=== PATIENT | male | born 1955 | race African-American/Black ===

== ENCOUNTER 2020-04-04 10:38 | Outpatient (CLI) | payer MEDICARE ==
--- NOTE | 2020-04-04 10:50 | RAD ---
XR Chest Pa Lat STANDARD HISTORY: Hemoptysis COMPARISON: None FINDINGS: The heart size is normal. The lungs are well expanded with patchy consolidation in the righ t upper lobe. No pneumothoraces or pleural effusions are seen. IMPRESSION: Findings suspicious for right sided pneumonia. A follow-up exam should be obtained after treatment to exclude underlying mass.
== END 2020-04-04 10:39 | disposition home or self-care (01) ==
LOC: RAD-FRANK 10:38
PROVIDERS: ATTEND Nurse Practitioner Family
DX: R04.2 Hemoptysis (principal)
CPT/HCPCS: 71046

== ENCOUNTER 2020-04-06 16:55 | Inpatient (IN) | payer MEDICARE, MEDICAID, OTHER ==
[~2020-04-06 16:55] MED LIST: Iopamidol-370 76% 500 ML 1 ML ONE
[2020-04-06 17:55] LABS: Hemoglobin 9.3 g/dL (14.0-18.0); Mean Corpuscular HGB CONC 33.1 g/dL (32.0-36.0); Mean Corpuscular Hemoglobin 27.6 pg (27.0-31.0); Mean Corpuscular Volume 83.5 fL (78.0-98.0); Mean Platelet Volume 6.4 fL (7.4-10.4); Platelet Count 655 thou/uL (130-400); RBC Distribution Width 14.1 % (11.5-14.5); Red Blood Cell (RBC) Count 3.36 mill/uL (4.70-6.10); White Blood Cell (WBC) Count 22.5 thou/uL (4.8-10.8)
[2020-04-06 18:15] LABS: ALT (SGPT) 55 U/L (8-55); AST (SGOT) 34 U/L (5-34); Albumin 3.2 g/dL (3.4-4.8); Alkaline Phosphatase 100 U/L (40-110); Anion Gap 15 mmol/L (10-20); BUN (Urea Nitrogen) 12 mg/dL (8.4-25.7); Bilirubin, Total 0.2 mg/dL (0.2-1.2); Calc. Creatinine Clearance 0 mL/min (70-130); Carbon Dioxide 23 mmol/L (23-31); Chloride 99 mmol/L (98-107); Estimated GFR-MDRD Greater than 90; Globulin 4.2 g/dL (2.4-3.5); Glucose 86 mg/dL (80-115); Potassium 3.7 mmol/L (3.5-5.1); Protein, Total 7.4 g/dL (5.8-8.1); Sodium 133 mmol/L (136-145)
--- NOTE | 2020-04-06 18:15 | RAD ---
Chest AP view INDICATION: 64-year-old male with high white count COMPARISON: April 04, 2020 FINDINGS: Lungs: Right suprahilar airspace consolidation persists suspicious for either a lung mass or right u pper lobe pneumonia. There is new patchy interstitial and groundglass opacity within the left lung base suspicious for new focus of pneumonia. Cardiac silhouette: The cardiomediastinal silhouette appears within normal limits. Pulmonary vasculature: Normal Pleural spaces: No pleural effusion or pneumothorax is demonstrated. Upper abdomen: No abnormality seen. Osseous structures: No acute osseous abnormality. Additional findings: None. IMPRESSION: Findings suspicious for bilateral pneumonia. A right upper lobe mass is not entirely excluded. Recomm end appropriate therapy and follow-up imaging.
[2020-04-06 18:20] LABS: Band 5 % (5-11); Lymphocytes 12 % (21-51); MDiff Complete? YES; Monocytes 5 % (0-10); Neutrophil 77 % (42-75); Platelet Morphology Comment Appears Increased; Polychromasia SLIGHT = 2-3 cells (100X) (0-2/hpf)
[2020-04-06] MEDS ORDERED: Acetaminophen 500 MG TAB ONE (18:42)
[2020-04-06] MEDS ORDERED: cefTRIAXone\\ROCEPHIN 2 GM VIAL ONE (18:42)
[2020-04-06] MEDS ORDERED: Azithromycin 500 MG VIAL ONE (19:21)
--- NOTE | 2020-04-06 20:08 | CT ---
CT OF THE CHEST WITH IV CONTRAST INDICATION: Pneumonia concern for lung mass COMPARISON: Radiographs dated April 04, 2020 and April 06, 2020 FINDINGS: CHEST: Lungs: There is dense airspace consolidation within the anterior segment of the right upper lobe with areas of intraparenchymal abscess formation. Small amount of adjacent fluid is seen within the anterior right pleural space. No definite right hilar mass is identified. There are patchy areas of s ubsegmental volume loss involving both lower lobes as well as the lingula. Pleural space: Small amount of fluid is seen within the pleural space adjacent to the right upper lo be consolidation consistent with a small loculated pleural effusion. Mediastinum: There are mildly prominent right paratracheal. The largest measures 1 cm. There is a pro minent right hilum measuring 2.2 cm. Upper abdomen:No acute abnormality. Osseous structures: No acute osseous abnormality. No destructive osteolytic or osteoblastic lesion i s identified. There is scattered degenerative and osteoarthritic changes. Soft tissues:Normal. IMPRESSION: 1. Severe right upper lobe pneumonia with a small adjacent loculated parapneumonic effusion. There ar e areas of cystic and gaseous changes within the right upper lobe parenchyma suspicious for areas of pulmonary abscess formation. Majority of these are small. The largest measures 2.7 cm on image 28 of series 2[address] Recommend CT follow-up to document resolution. 2. Mildly enlarged right hilar and right paratracheal lymph nodes are likely reactive.
[2020-04-06] MEDS ORDERED: Acetaminophen 325 MG TAB PO PRN (20:29)
--- NOTE | 2020-04-06 21:29 | HP ---
REASON FOR ADMISSION: Abnormal labs. HISTORY OF PRESENT ILLNESS: This is a 64-year-old male patient, who went to his yearly physical. He did report to his doctor that he has been having fatigue and weakness. Blood work was done and his white count was found to be elevated. He also reported cough productive of sputum, sometimes mixed with streaks of blood and chunks of blood that started occurring past few weeks. He denies any fever or any chills. No nausea. No vomiting. No recent travel. No sick contacts. He does report being short of breath with moderate exertion such as when he had to lift his arms to have a chest x-ray done. PAST MEDICAL HISTORY: The patient does not have any past medical history. PAST SURGICAL HISTORY: No surgical history. SOCIAL HISTORY: He does smoke less than a pack a day. He drinks alcohol socially. ALLERGIES: NO NOTE OF ANY DRUG ALLERGY. REVIEW OF SYSTEMS: All systems reviewed except the above mentioned, found to be negative. PHYSICAL EXAMINATION: GENERAL: He is awake, alert, and oriented, does not appear in distress. VITAL SIGNS: His blood pressure is 121/60, heart rate of 68, saturating 98% on room air, and temperature is 99.2. HEENT: Head is nontraumatic and normocephalic. Pupils equal, reactive. Extraocular motors are intact. Nonicteric sclerae. Well-injected conjunctivae. Oral mucosa normal. Nasal mucosa normal. NECK: Supple. No adenopathy. No murmur. Thyroid is not palpable. Trachea is midline. No supraclavicular lymphadenopathy. HEART: S1 and S2, regular. No murmur. No gallop. No friction rubs. No displacement of PMI. LUNGS: Clear to auscultation bilaterally. No wheezes or rhonchi. No crackles. ABDOMEN: Bowel sounds are positive. Nontender abdomen. No hepatosplenomegaly. EXTREMITIES: No lower extremity edema. No cyanosis. NEUROLOGIC: Cranial nerves 2 through 12 within normal limits. Normal motor function. Normal sensory function. Normal reflexes. LABORATORY DATA: Blood work shows WBC of 22.5, hemoglobin 9.3, platelets 655, neutrophil count 77%. Sodium 133, creatinine 0.83, albumin 3.2, and globulin 4.2. COVID-[address] shows severe right upper lobe pneumonia with a small adjacent loculated parapneumonic effusion, areas of cystic and gaseous changes within the right upper lobe parenchyma suspicious for areas of pulmonary abscess formation, majority of these are small. The largest measures 2.[address] followup document resolution. Mildly enlarged right hilar, right paratracheal lymph nodes, likely reactive. ASSESSMENT AND PLAN: This is a 64-year-old male patient, who is presenting with generalized fatigue and weight loss. He was found to have elevated white count. A CT of the chest revealing pneumonia with small pleural effusion and abscesses. Clinically, he looks very stable. I would start him on Zosyn and azithromycin. He did receive Rocephin and azithromycin in the ER. I would also ask Pulmonary to see him. For deep venous thrombosis prophylaxis, he will be on SCDs. I did discuss with him his code status and he wishes to be a full code. Job ID: [id number]
[2020-04-06 22:03] VITALS: BMI 19.1
[2020-04-07] MEDS: Piperacillin/Tazobactam 4.5 GM in Sodium Chloride 0.9% 100 ML IVPB SCH ×4 (00:01→17:23)
[2020-04-07 05:52] LABS: #Eosinphils 0.2 thou/uL (0.0-0.7); #Monocytes 1.9 thou/uL (0.11-0.59); #Neutrophils 15.4 thou/uL (1.40-6.50); %Basophils 0.2 % (0.0-1.0); %Eosinophils 1.1 % (0.0-10.0); %Lymphocytes 14.6 % (21.0-51.0); %Monocytes 9.2 % (0.0-10.0); %Neutrophils 74.8 % (42.0-75.0); Mean Corpuscular Hemoglobin 26.3 pg (27.0-31.0); Mean Corpuscular Volume 84.8 fL (78.0-98.0); Mean Platelet Volume 6.1 fL (7.4-10.4); Platelet Count 638 thou/uL (130-400); RBC Distribution Width 14.3 % (11.5-14.5); Red Blood Cell (RBC) Count 3.43 mill/uL (4.70-6.10); White Blood Cell (WBC) Count 20.5 thou/uL (4.8-10.8)
[2020-04-07 06:12] LABS: Anion Gap 11 mmol/L (10-20); BUN (Urea Nitrogen) 10 mg/dL (8.4-25.7); Calc. Creatinine Clearance 72 mL/min (70-130); Calcium 8.4 mg/dL (7.8-10.44); Carbon Dioxide 25 mmol/L (23-31); Chloride 102 mmol/L (98-107); Estimated GFR-MDRD Greater than 90; Glucose 85 mg/dL (80-115); Potassium 4.3 mmol/L (3.5-5.1); Sodium 134 mmol/L (136-145)
[2020-04-07 09:46] LABS: HBCM Index 0.07 S/CO (0-0.79); HBSAg Index 0.17 S/CO (0-0.99); HIV (1/2) Antibody/Antigen Non-Reactive (NonReactive); HIV 1/2 INDEX 0.08 S/CO (<1.00); Hep A IgM AB Non-Reactive (NonReactive); Hep A IgM S/CO 0.36 S/CO (0-0.79); Hep B Surf Ag Non-Reactive S/CO (NonReactive); Hep C IgG Ab Non-Reactive (NonReactive); Hep C Index 0.23 S/CO (0-0.79); Hepatitis B Core IgM Abs Non-Reactive (NonReactive)
--- NOTE | 2020-04-07 09:58 | CON ---
DATE OF CONSULTATION: 04/07/2020 REASON FOR CONSULTATION: Cavitary lung changes. HISTORY OF PRESENT ILLNESS: This is a 64-year-old black male, who has been feeling poorly for the last couple of weeks. He has had a cough with bloody sputum. He has had approximately 30 pounds of weight loss in the last several months. He was brought in the hospital yesterday with a CT of the chest showing cavitary upper lobe changes. Fortunately, he has been put in negative pressure, but he was not isolated for TB initially. REVIEW OF SYSTEMS: Remarkable for poor dentition, weight loss. He denies any night sweats. PAST MEDICAL HISTORY: Denies. PAST SURGICAL HISTORY: None. SOCIAL HISTORY: The patient was [facility] around 2000. He smokes less than a pack per day, usually about 4 cigarettes a day. He drinks a couple of beers a day. He also drinks hard liquor on weekends in special occasions. ALLERGIES: NONE. MEDICATIONS: Prior to admission, none. PHYSICAL EXAMINATION: VITAL SIGNS: Temperature 98.6, pulse 66, respirations 18, O2 saturation 99%, and blood pressure 105/52. GENERAL: Slightly cachectic appearing male, 6 feet and 3 inches, 152 pounds. HEENT: Unremarkable except for extremely poor dentition with several rotten teeth. CARDIOVASCULAR: S1 and S2. Regular. ABDOMEN: Soft and nontender. No hepatomegaly. LUNGS: Crackles in right upper lobe. NECK: No adenopathy or JVD. EXTREMITIES: No clubbing, cyanosis, or edema. LABORATORY DATA: White blood cell count 20, hematocrit 29.1, and platelet count 638. Sodium 134, potassium 4.3, chloride 102, CO2 of 25, BUN 10, creatinine 0.9, and glucose 85. His COVID test was negative. I reviewed the CT, it shows several large cavitary changes in the right upper lobe/right middle lobe region. I do not see much in the way of effusion. ASSESSMENT: Cavitary lung disease. Differential diagnosis includes anaerobic pneumonia, tuberculosis, and cancer. RECOMMENDATIONS: 1. He first needs to be ruled out for TB. I have put in respiratory isolation and ordered the test. 2. HIV has been ordered. 3. He has been started on Zosyn, which should be appropriate coverage. 4. I would not really summon from respiratory isolation until we have 3 negative AFBs. 5. Consider actinomycoses in the differential diagnosis given his poor dentition. Job ID: [id number]
--- NOTE | 2020-04-07 10:03 | CON ---
DATE OF CONSULTATION: 04/07/2020 REQUESTING PHYSICIAN: Dr. Newman. CHIEF COMPLAINT: Fatigue and weakness with productive cough. NARRATIVE OF REPORT: I received the consultation on this patient through the clerical staff after the hospitalist coming on service this morning took over the patient from the admitting hospitalist. Pulmonology has already been consulted. On review of the H and P, the patient describes a productive cough with hemoptysis over the last few weeks. Screening blood work showed leukocytosis and a chest x-ray showed a right upper lobe infiltrate. CT scanning showed a complicated pattern of infiltrate with multiple areas of enlarged air spaces without any air-fluid levels. IMPRESSION AND RECOMMENDATION: At this point, management of what would appear to represent some sort of necrotizing pneumonia is medical in nature and there does not appear to be any role at this point for surgical intervention and I will defer to the driver's education instructor that has already been consulted. Job ID: [id number]
--- NOTE | 2020-04-07 14:23 | PDOC.HOSPP ---
- Subjective Encounter Date: 04/07/20 Encounter Time: 08:45 Subjective: c/o chest pain on the right side with coughing/sneezing or taking deep breaths has cough with greenish yellow sputum, occasional blood tinge x 2-3 weeks no fever - Objective Vital Signs & Weight: Vital Signs (12 hours) Temp Pulse Resp BP Pulse Ox 04/07/20 07:51 98.6 F 66 18 105/52 L 99 04/07/20 04:25 98 F 64 120/62 98 Weight Admit Weight 152 lb 9 oz Weight 152 lb 9 oz I&O: 04/06/20 04/07/20 04/08/20 06:59 06:59 06:59 Intake Total 100 Output Total 400 Balance -300 Result Diagrams: 04/07/20 05:35 04/07/20 05:35 Hospitalist ROS - Medication Medications: Active Medications Generic Name Dose Route Start Last Admin Trade Name Freq PRN Reason Stop Dose Admin Piperacillin Sod/Tazobactam 100 mls @ 200 mls/hr 04/06/20 23:59 04/07/20 13: 01 Sod 4.5 gm/ Sodium Chloride IVPB 100 mls Q6HR LETICIA Administration - Exam General Appearance: awake alert Eye: PERRL, anicteric sclera ENT: no oropharyngeal lesions, moist mucosa Neck: supple, no JVD Heart: RRR, no murmur Respiratory: no wheezes, rhonchi Gastrointestinal: soft, non-tender, non-distended, normal bowel sounds Extremities: no cyanosis, no edema Neurological: cranial nerve grossly intact, no focal deficits Psychiatric: normal affect, A&O x 3 Hosp A/P (1) Abscess of right lung with pneumonia Code(s): J85.1 - ABSCESS OF LUNG WITH PNEUMONIA Status: Acute Qualifiers: Lung location: upper lobe of lung Qualified Code(s): J85.1 - Abscess of lung with pneumonia (2) Pleuritic chest pain Code(s): R07.81 - PLEURODYNIA Status: Acute (3) Empyema lung Code(s): J86.9 - PYOTHORAX WITHOUT FISTULA Status: Suspected (4) Sepsis Code(s): A41.9 - SEPSIS, UNSPECIFIED ORGANISM Status: Acute Qualifiers: Sepsis type: sepsis due to unspecified organism Sepsis acute organ dysfunction status: without acute organ dysfunction Qualified Code(s): A41.9 - Sepsis, unspecified organism (5) Tobacco abuse Code(s): Z72.0 - TOBACCO USE Status: Chronic - Plan is on zosyn, neb quantiferon, sputum for afb covid test likely anerobic/staph abscess, has bad smell to his sputum as well hemostable appreciate 's help
[2020-04-07] MEDS ORDERED: cefTRIAXone\\ROCEPHIN 1 GM in Sodium Chloride 0.9% 100 ML IVPB SCH (19:00)
[2020-04-07] MEDS: Azithromycin 200 MG/5 ML Oral Suspension PO SCH (20:57)
[2020-04-07] MEDS ORDERED: Prevnar 13-Val Conj/PF 0.5 ML SYRINGE IM ONE (21:00)
[2020-04-08] MEDS: Piperacillin/Tazobactam 4.5 GM in Sodium Chloride 0.9% 100 ML IVPB SCH ×4 (00:13→17:12)
[2020-04-08] MEDS ORDERED: Ibuprofen 200 MG TAB PO PRN (08:20)
[2020-04-08] MEDS ORDERED: Morphine 4 MG/ML VIAL SLOW IVP PRN (08:20)
--- NOTE | 2020-04-08 12:29 | PDOC.HOSPP ---
- Subjective Encounter Date: 04/08/20 Encounter Time: 09:45 Subjective: breathing better, pleuritic pain is same is amb in room has given one sputum sample so far lab - Objective Vital Signs & Weight: Vital Signs (12 hours) Temp Pulse Resp BP Pulse Ox 04/08/20 08:00 96 04/08/20 07:33 69 18 96 04/08/20 04:34 97.3 F L 56 L 18 122/69 100 04/08/20 00:54 16 Weight Admit Weight 152 lb 9 oz Weight 152 lb 9 oz I&O: 04/07/20 04/08/20 04/09/20 06:59 06:59 06:59 Intake Total 100 Output Total 400 Balance -300 Result Diagrams: 04/07/20 05:35 04/07/20 05:35 Hospitalist ROS - Medication Medications: Active Medications Generic Name Dose Route Start Last Admin Trade Name Freq PRN Reason Stop Dose Admin Acetaminophen 650 mg 04/06/20 20:29 04/07/20 20:59 Tylenol PO 650 mg Q4H PRN Administration Headache/Fever/Mild Pain (1-3) Albuterol/Ipratropium 3 ml 04/07/20 13:00 04/08/20 07:33 Duoneb NEB 3 ml [id number] LETICIA Administration Azithromycin 500 mg 04/07/20 19:00 04/07/20 20:57 Zithromax PO 500 mg 1900 LETICIA Administration Piperacillin Sod/Tazobactam 100 mls @ 200 mls/hr 04/06/20 23:59 04/08/20 12: 21 Sod 4.5 gm/ Sodium Chloride IVPB 100 mls Q6HR LETICIA Administration - Exam General Appearance: awake alert Eye: PERRL, anicteric sclera ENT: no oropharyngeal lesions, moist mucosa Neck: supple, no JVD Heart: RRR, no murmur Respiratory: no wheezes, no rales, rhonchi Gastrointestinal: soft, non-tender, non-distended, normal bowel sounds Extremities: no cyanosis, no edema Neurological: cranial nerve grossly intact, no focal deficits Psychiatric: normal affect, A&O x 3 Hosp A/P (1) Abscess of right lung with pneumonia Code(s): J85.1 - ABSCESS OF LUNG WITH PNEUMONIA Status: Acute Qualifiers: Lung location: upper lobe of lung Qualified Code(s): J85.1 - Abscess of lung with pneumonia (2) Pleuritic chest pain Code(s): R07.81 - PLEURODYNIA Status: Acute (3) Sepsis Code(s): A41.9 - SEPSIS, UNSPECIFIED ORGANISM Status: Acute Qualifiers: Sepsis type: sepsis due to unspecified organism Sepsis acute organ dysfunction status: without acute organ dysfunction Qualified Code(s): A41.9 - Sepsis, unspecified organism (4) Tobacco abuse Code(s): Z72.0 - TOBACCO USE Status: Chronic - Plan is on zosyn, neb quantiferon, sputum for afb covid test is -ve, blood cs are -ve likely anerobic/staph abscess, has bad smell to his sputum per patient hemostable appreciate 's help
--- NOTE | 2020-04-08 13:23 | PRG ---
DATE OF SERVICE: 04/08/2020 SUBJECTIVE: He feels better today. He has no acute complaints. OBJECTIVE: VITAL SIGNS: Temperature 97.3, pulse 69, respirations 18, O2 saturation 96% on room air, blood pressure 122/69. HEENT: Unremarkable. NECK: No JVD. CHEST: Clear. CARDIAC: S1 and S2. Regular. ABDOMEN: Soft. EXTREMITIES: No edema. LABORATORY DATA: No new labs were obtained today. AFB is negative x1. HIV test was negative. ASSESSMENT: Lung abscesses/pneumonia. Differential diagnosis TB versus anaerobic/hematogenous spread from poor teeth. Plan continue coverage with Zosyn and await the 2nd and 3rd AFB tests before discontinuing respiratory isolation. Job ID: [id number]
[2020-04-08] MEDS: Azithromycin 200 MG/5 ML Oral Suspension PO SCH (20:47)
[2020-04-09] MEDS: Piperacillin/Tazobactam 4.5 GM in Sodium Chloride 0.9% 100 ML IVPB SCH ×4 (00:01→17:30)
--- NOTE | 2020-04-09 13:33 | PDOC.HOSPP ---
- Subjective Encounter Date: 04/09/20 Encounter Time: 08:30 Subjective: no new complaints is eating well gave his second afb sputum sample - Objective Vital Signs & Weight: Vital Signs (12 hours) Temp Pulse Resp BP Pulse Ox 04/09/20 13:13 59 L 16 98 04/09/20 07:20 98.3 F 76 20 114/57 L 98 04/09/20 06:45 59 L 16 100 Weight Admit Weight 152 lb 9 oz Weight 152 lb 9 oz I&O: 04/08/20 04/09/20 04/10/20 06:59 06:59 06:59 Intake Total 750 Output Total 900 Balance -150 Result Diagrams: 04/07/20 05:35 04/07/20 05:35 Hospitalist ROS - Medication Medications: Active Medications Generic Name Dose Route Start Last Admin Trade Name Freq PRN Reason Stop Dose Admin Acetaminophen 650 mg 04/06/20 20:29 04/07/20 20:59 Tylenol PO 650 mg Q4H PRN Administration Headache/Fever/Mild Pain (1-3) Albuterol/Ipratropium 3 ml 04/07/20 13:00 04/09/20 13:13 Duoneb NEB 3 ml [id number] LETICIA Administration Azithromycin 500 mg 04/07/20 19:00 04/08/20 20:47 Zithromax PO 500 mg 1900 LETICIA Administration Piperacillin Sod/Tazobactam 100 mls @ 200 mls/hr 04/06/20 23:59 04/09/20 12: 40 Sod 4.5 gm/ Sodium Chloride IVPB 100 mls Q6HR LETICIA Administration - Exam General Appearance: awake alert Eye: PERRL, anicteric sclera ENT: no oropharyngeal lesions, moist mucosa Neck: supple, no JVD Heart: RRR, no murmur Respiratory: no wheezes, no rales, rhonchi Gastrointestinal: soft, non-tender, non-distended, normal bowel sounds Extremities: no cyanosis, no edema Neurological: cranial nerve grossly intact, no focal deficits Psychiatric: normal affect, A&O x 3 Hosp A/P (1) Abscess of right lung with pneumonia Code(s): J85.1 - ABSCESS OF LUNG WITH PNEUMONIA Status: Acute Qualifiers: Lung location: upper lobe of lung Qualified Code(s): J85.1 - Abscess of lung with pneumonia (2) Pleuritic chest pain Code(s): R07.81 - PLEURODYNIA Status: Acute (3) Sepsis Code(s): A41.9 - SEPSIS, UNSPECIFIED ORGANISM Status: Acute Qualifiers: Sepsis type: sepsis due to unspecified organism Sepsis acute organ dysfunction status: without acute organ dysfunction Qualified Code(s): A41.9 - Sepsis, unspecified organism (4) Tobacco abuse Code(s): Z72.0 - TOBACCO USE Status: Chronic - Plan is on zosyn, neb sputum for afb (first one is -ve, he gave a second sample today) covid test is -ve, blood cs are -ve likely anerobic/staph abscess, has bad smell to his sputum per patient hemostable appreciate 's help
--- NOTE | 2020-04-09 14:08 | PRG ---
DATE OF SERVICE: 04/09/2020 SUBJECTIVE: He is doing well. He is coughing up less blood. We still do not have the final 2 AFBs back. OBJECTIVE: VITAL SIGNS: Temperature 98.3, pulse 69, respirations 16, O2 saturation 98% room air, blood pressure 114/57. HEENT: Unremarkable. NECK: No JVD. LUNGS: Clear. CARDIAC: S1 and S2. Regular. ABDOMEN: Soft. EXTREMITIES: No edema. LABORATORY DATA: No new labs were done today. ASSESSMENT: 1. Cavitary pneumonia-rule out TB. Plan, await final AFBs. If negative, would treat him for 3 weeks with Augmentin and repeat imaging after that. 2. I have no problem with a QuantiFERON test being done. Job ID: [id number]
[2020-04-09] MEDS: Azithromycin 200 MG/5 ML Oral Suspension PO SCH (18:47)
[2020-04-10] MEDS: Piperacillin/Tazobactam 4.5 GM in Sodium Chloride 0.9% 100 ML IVPB SCH ×3 (00:01→11:17)
--- NOTE | 2020-04-10 09:23 | PDOC.HOSPP ---
- Subjective Encounter Date: 04/10/20 Encounter Time: 11:00 Subjective: Patient feeling better. Some mild Right upper chest pain with cough occ, but breathing well. Eager to go home. - Objective Vital Signs & Weight: Vital Signs (12 hours) Temp Pulse Resp BP Pulse Ox 04/10/20 07:43 98.2 F 68 18 148/80 H 100 04/10/20 06:42 62 16 99 04/10/20 00:20 77 16 98 Weight Admit Weight 152 lb 9 oz Weight 152 lb 9 oz I&O: 04/09/20 04/10/20 04/11/20 06:59 06:59 06:59 Intake Total 750 750 Output Total 900 800 Balance -150 -50 Result Diagrams: 04/07/20 05:35 04/07/20 05:35 Hospitalist ROS - Review of Systems Constitutional: denies: fever, chills Respiratory: reports: cough, pleuritic pain. denies: shortness of breath, SOB with excertion Cardiovascular: denies: palpitations, orthopnea Gastrointestinal: denies: nausea, vomiting, abdominal pain - Medication Medications: Active Medications Generic Name Dose Route Start Last Admin Trade Name Freq PRN Reason Stop Dose Admin Acetaminophen 650 mg 04/06/20 20:29 04/07/20 20:59 Tylenol PO 650 mg Q4H PRN Administration Headache/Fever/Mild Pain (1-3) Albuterol/Ipratropium 3 ml 04/07/20 13:00 04/10/20 06:42 Duoneb NEB 3 ml [id number] LETICIA Administration Piperacillin Sod/Tazobactam 100 mls @ 200 mls/hr 04/06/20 23:59 04/10/20 05: 20 Sod 4.5 gm/ Sodium Chloride IVPB 100 mls Q6HR LETICIA Administration - Exam General Appearance: NAD, awake alert ENT: moist mucosa Heart: RRR, no murmur, no gallops, no rubs Respiratory: CTAB, no wheezes, no rales, no ronchi Gastrointestinal: soft, normal bowel sounds Musculoskeletal: normal tone, normal strength, no muscle wasting Psychiatric: normal affect, normal behavior, A&O x 3 Hosp A/P (1) Abscess of right lung with pneumonia Code(s): J85.1 - ABSCESS OF LUNG WITH PNEUMONIA Status: Acute Qualifiers: Lung location: upper lobe of lung Qualified Code(s): J85.1 - Abscess of lung with pneumonia (2) Pleuritic chest pain Code(s): R07.81 - PLEURODYNIA Status: Acute (3) Sepsis Code(s): A41.9 - SEPSIS, UNSPECIFIED ORGANISM Status: Acute Qualifiers: Sepsis type: sepsis due to unspecified organism Sepsis acute organ dysfunction status: without acute organ dysfunction Qualified Code(s): A41.9 - Sepsis, unspecified organism (4) Tobacco abuse Code(s): Z72.0 - TOBACCO USE Status: Chronic - Plan is on zosyn, neb sputum for afb (3 specimens neg on unconcentrated smear, reference lab confirmation sent off) covid test is -ve, blood cs are -ve likely anerobic/staph abscess, has bad smell to his sputum per patient hemostable appreciate 's help- cleared to discharge and complete full 21 days of abx, Augmentin BID.
--- NOTE | 2020-04-10 09:43 | PRG ---
DATE OF SERVICE: 04/10/2020 SUBJECTIVE: The patient is doing well, has no complaints. OBJECTIVE: VITAL SIGNS: Temperature 98.2, pulse 68, respirations 18, O2 saturation 100%, blood pressure 148/80. HEENT: Unremarkable. NECK: No adenopathy or JVD. LUNGS: Clear. CARDIAC: S1 and S2. Regular. ABDOMEN: Soft. EXTREMITIES: No edema. He has three sputums that are negative for AFB. LABORATORY DATA: No labs were done today. ASSESSMENT: Cavitary pneumonia-most likely anaerobic from aspiration. PLAN: I would recommend treating this patient with Augmentin 875 mg b.i.d. for 21 days. He needs to have a followup chest x-ray and about 1 month. This can be done either through me or through his primary care doctor. He is safe for discharge to home today. Job ID: [id number]
[2020-04-10] MEDS ORDERED: Prevnar 13-Val Conj/PF 0.5 ML SYRINGE IM ONE (11:00)
[2020-04-10 12:16] VITALS: BP 134/76; TEMP 98.3
[2020-04-10] MEDS ORDERED: Azithromycin 250 MG TAB PO SCH (19:00)
--- NOTE | 2020-04-11 06:33 | DIS ---
DATE OF ADMISSION: 04/06/2020 DATE OF DISCHARGE: 04/10/2020 PRIMARY CARE PHYSICIAN: Clinic in [place]. REASON FOR ADMISSION: Lung abscess. DISCHARGE DIAGNOSES: 1. Abscess of the right lung with pneumonia. 2. Pleuritic chest pain. 3. Sepsis, resolved. 4. Tobacco abuse. PROCEDURES: CT of the chest with IV contrast showing severe right upper lobe pneumonia with small adjacent loculated parapneumonic effusion with areas of cystic and gaseous changes in the right upper lobe, suspicious for pulmonary abscess formation, and mildly enlarged right hilar and right paratracheal lymph nodes, likely reactive. CONSULTATIONS: 1. Pulmonology, Dr. Colon. 2. CT Surgery, Dr. Hardy. SUMMARY OF HOSPITAL COURSE: This is a 64-year-old male, who presented with fatigue and weakness, had blood work done by his primary care doctor, which showed an elevated white blood cell count. The patient also had some productive sputum, very smelly with streaks of blood for the last few weeks. He presented to the hospital, had a CT scan done with above results. Dr. Colon and Dr. Hardy were consulted. It was determined that he had a likely pulmonary abscess, most likely anaerobic from poor dentition. He did have [address] Hardy determined that this patient should be medically managed, not surgically. The patient was treated with IV antibiotics. He had improvement during the hospitalization and he was cleared to discharge by Dr. Colon to complete a 3-week course of antibiotics with Augmentin twice a day. DISCHARGE MANAGEMENT: Discharged home. FOLLOWUP: Follow up with Dr. Colon or primary care physician in 1 month for repeat chest x-ray. The patient is also to follow up with a dentist in town that his primary care doctor has referred him to for and look at having his diseased teeth pulled. ACTIVITY: As tolerated. DIET: Regular diet. MEDICATIONS: Augmentin 875/125 mg 1 tablet twice a day, 34 tablets dispensed. Job ID: [id number]
--- NOTE | 2020-04-11 08:13 | PQF ---
CLINICAL DOCUMENTATION CLARIFICATION FORM: Dear : Jesus Jensen Date / Time: 04/11/2020 0810 Please exercise your independent, professional judgment in responding to the clarification form. Clinical indicators are provided on the bottom of this form for your review Please check appropriate box(es): [ ] Protein Calorie Malnutrition: [ ] Mild [ ] Moderate [ ] Severe [ ] Other Malnutrition (please specify) __ [ ] Underweight without malnutrition [ X ] Cachexia [ ] Other diagnosis [ ] Unable to determine In addition, please specify: Present on Admission (POA): [ X ] Yes [ ] No [ ] Unable to determine Physician Signature: Date/Time: For continuity of documentation, please document condition throughout progress notes and discharge summary. Thank You. To be completed by CDI/Coding staff for physician review: Present Clinical Indicators - Signs / Symptoms / Labs Results and Location in Medical Record [X] BP 97/56 Pulse 90, Resp 18 Temp 100.9 Vital signs 04/06 [X] BMI of 19.1 Nutritional assessment 04/07 [X] Cachexia ED notes p10 04/06 [X] Weight loss Nutritional assessment 04/07 [X] Does not have much an appetite Nutritional assessment 04/07 [X] Serum Jennifer protein 7.4, Albumin 3.2, Globulin 4.2, Ratio 0.8 Laboratory Chemistry 04/06 Present Risk Factors Results and Location in Medical Record [X] 64 year-old Male H&P p1 04/06 Dr Aviles [X] Pneumonia with abscess H&P p2 04/06 Dr Aviles [X] Tobacco Abuse HPN p3 04/07 Dr Newman [X] Sepsis HPN p3 04/07 Dr Newman Present Treatments Results and Location in Medical Record [X] Dietary consult Nutritional assessment 04/07 [X] Nutritional supplements Nutritional assessment 04/07 [X] Appetite stimulant - medication Nutritional assessment 04/07 [X] Weight monitoring Nutritional assessment 04/07 [X] Intake monitoring Nutritional assessment 04/07 CDS/Almond Huller Signature: Cassie Rivas [employer] Phone #: ext [phone] Date/Time: 04/11/2020 0810 Moderate Malnutrition (in acute illness) ? Energy Intake: <75% of estimated energy requirement for > 7 days ? Weight Loss: 1-2%/1 week; 5%/ 1 month; 7.5%/3 months ? Other: mild body fat loss; mild muscle mass loss; mild fluid accumulation; Severe Malnutrition (in acute illness) ? Energy Intake: ? 50% of estimated energy requirement for ? 5 days ? Weight Loss: >2%/1 week; >5%/1 month; >7.5%/3 months ? Other: moderate body fat loss; moderate muscle mass loss; moderate- severe fluid accumulation; measurably reduced decorating equipment setter strength Moderate Malnutrition (in chronic illness) ? Energy Intake: <75% of estimated energy requirement for ?1 month ? Weight Loss: 5%/1 month; 7.5%/3 months; 10%/6 months; 20%/1 year ? Other: mild body fat loss; mild muscle mass loss; mild fluid accumulation Severe Malnutrition (in chronic illness) ? Energy Intake: ?75% of estimated energy requirement for ?1 month ? Weight Loss: >5%/1 month; >7.5%/3 months; >10%/6 months; >20%/1 year ? Other: severe body fat loss; severe muscle mass loss; severe fluid accumulation; measurably reduced decorating equipment setter strength This is a permanent part of the Medical Record [facility]
--- NOTE | 2020-04-11 08:14 | PQF ---
CLINICAL DOCUMENTATION CLARIFICATION FORM: Dear : Jesus Jensen Date / Time: 04/11/2020 0813 Please exercise your independent, professional judgment in responding to the clarification form. Clinical indicators are provided on the bottom of this form for your review Based on the clinical indicators on admit, can you determine if sepsis was present at the time of admission or developed after admission? Diagnosis: Sepsis Present on Admission (POA): [ X ] Yes [ ] No [ ] Unable to determine Physician Signature: Date/Time: For continuity of documentation, please document condition throughout progress notes and discharge summary. Thank You. To be completed by CDI/Coding staff for physician review: Present Clinical Indicators - Signs / Symptoms / Labs Results and Location in Medical Record [X] WBC 22.5, Plt count 665, Neutrophils 77, Band 5 Laboratory Hematology 04/06 [X] Blood culture : No growth in 48 hrs Microbiology 04/06 [X] BP 97/56 Pulse 90, Resp 18 Temp 100.9 Vital signs 04/06 [X] SIRS Scoring: Yes pt did meet at least 1 criteria ED notes p2 04/06 [X] He did report he has been having fatigue and weakness H&P p1 04/06 Dr Aviles [X] Blood wor was done and his white count was found to be elevated H&P p1 04/06 Dr Aviles [X] Pneumonia with abscess H&P p2 04/06 Dr Aviles [X] Sepsis HPN p3 04/07 Dr Newman [X] patchy interstitial and groundglass opacity within the left lung base Chest Xray 04/04 Present Risk Factors Results and Location in Medical Record [X] 64 year-old Male H&P p1 04/06 Dr Aviles [X] Pneumonia with abscess H&P p2 04/06 Dr Aviles [X] Tobacco Abuse HPN p3 04/07 Dr Newman Present Treatments Results and Location in Medical Record [X] IV Zosyn 4.5 gm MAR 04/06 [X] IV Ceftriaxone 1 gm MAR 04/06 [X] IV Azithromax 500 mg oral MAR 04/06 [X] Blood culture Microbiology 04/06 [X] Respiratory Consult Consult 04/07 De Bermeo [X] Chest X-ray Imaging 04/06 CDS/[employer] Signature: Cassie Toledoshahnaz Phone #: ext [phone] Date/Time: 04/11/2020 0813 This is a permanent part of the Medical Record [facility]
== END 2020-04-10 14:16 | disposition home or self-care (01) | DRG 871 ==
LOC: ERS 16:55 → T4-A 19:28
PROVIDERS: ADMIT Internal Medicine; ATTEND Internal Medicine
PROC: 8E0ZXY6 Isolation (ICD-10-PCS; principal; 2020-04-06)
PROC: 3E0234Z Introduction of Serum, Toxoid and Vaccine into Muscle, Percutaneous Approach (ICD-10-PCS; 2020-04-10)
DX: A41.9 Sepsis, unspecified organism (principal); J15.8 Pneumonia due to other specified bacteria; J85.1 Abscess of lung with pneumonia; J69.0 Pneumonitis due to inhalation of food and vomit; R64 Cachexia; Z20.828 Contact with and (suspected) exposure to other viral communicable diseases; F17.210 Nicotine dependence, cigarettes, uncomplicated; Z68.20 Body mass index [BMI] 20.0-20.9, adult; Z23 Encounter for immunization
CPT/HCPCS: 36415; 71045; 71046; 71260; 80048; 80053; 80074; 83605; 85025; 86480; 87040; 87070; 87116; 87205; 87206; 87389; 87633; 90471; 90670; 94640; 96365; 96367; G0009; J0456; J0696; J2543; J3490; J7620; Q9967; U0002

== ENCOUNTER 2020-07-04 13:55 | Outpatient (CLI) | payer MEDICARE, MEDICAID ==
--- NOTE | 2020-07-04 14:54 | CT ---
CT CHEST WITHOUT IV CONTRAST: 07/04/20 HISTORY: Pneumonia of right upper lobe due to infectious organism. COMPARISON: 04/06/20. FINDINGS: there has been significant improvement in the right upper lobe consolidation since the previous exam with mild residual densities. No new masses or areas of consolidation is seen. No pleural or pericard ial effusions are identified. There is no evidence of aneurysmal dilatation of the thoracic aorta. There are degenerative changes i n the spine. IMPRESSION: Significant interval improvement since 04/06/20 with residual density in the right upper lobe likely re presenting scarring or mild residual infection. Continued follow-up in three months is recommended. POS: OFF
== END 2020-07-04 13:56 | disposition home or self-care (01) ==
LOC: BICCT 13:55
PROVIDERS: ATTEND Nurse Practitioner Family
DX: J18.9 Pneumonia, unspecified organism (principal)
CPT/HCPCS: 71250

== ENCOUNTER 2020-10-12 09:13 | Outpatient (CLI) | payer MEDICARE, MEDICAID ==
--- NOTE | 2020-10-12 09:58 | RAD ---
PA AND LATERAL VIEWS CHEST: Date: 10/12/2020 HISTORY: Right upper lobe pneumonia. COMPARISON: 05/26/2020. FINDINGS: The heart size is normal. The aorta is tortuous. No lobar consolidation, pneumothoraces, or pleural e ffusions are seen. The lungs are well expanded with mild residual scarring in the right upper lobe. N o acute osseous abnormalities are seen. IMPRESSION: No evidence of acute process. POS: BEL
== END 2020-10-12 09:14 | disposition home or self-care (01) ==
LOC: RAD-FRANK 09:13
PROVIDERS: ATTEND Nurse Practitioner Family
DX: J18.9 Pneumonia, unspecified organism (principal)
CPT/HCPCS: 71046